=== PATIENT | female | born 1950 | race Caucasian/White ===

== ENCOUNTER 2023-03-24 09:45 | Emergency (ER) | payer MEDICARE | END 2023-03-24 10:20 | disposition home or self-care (01) | LOC: MADERS 09:45 | DX: S39.012A Strain of muscle, fascia and tendon of lower back, initial encounter (principal); F17.210 Nicotine dependence, cigarettes, uncomplicated; X58.XXXA Exposure to other specified factors, initial encounter | CPT/HCPCS: 99283 ==

== ENCOUNTER 2023-04-12 16:07 | Outpatient (CLI) | payer MEDICARE | END 2023-04-12 16:08 | disposition home or self-care (01) | LOC: MADRAD 16:07 | PROVIDERS: ATTEND Family Medicine | DX: M54.50 Low back pain, unspecified (principal); M47.816 Spondylosis without myelopathy or radiculopathy, lumbar region; M51.36 Other intervertebral disc degeneration, lumbar region | CPT/HCPCS: 72100 ==